=== PATIENT | male | born 1990 | race Two or more races ===

== ENCOUNTER 2018-07-08 12:38 | Emergency (ER) | payer MEDICAID ==
[~2018-07-08] VITALS: Ht 180.3 cm; Wt 60.0 kg
[2018-07-08 12:42] VITALS: BP 130/90
[2018-07-08] MEDS ORDERED: ACETAMINOPHEN 500MG TABLET PO ONE (14:30)
== END 2018-07-08 16:26 | disposition home or self-care (01) ==
LOC: ER 12:38
DX: S20.212A Contusion of left front wall of thorax, initial encounter (principal); Y04.8XXA Assault by other bodily force, initial encounter; Y93.89 Activity, other specified; Y92.89 Other specified places as the place of occurrence of the external cause; Y99.8 Other external cause status
CPT/HCPCS: 71045; 99283